=== PATIENT | male | born 1945 | race Caucasian/White ===

== ENCOUNTER 2017-08-23 12:11 | Emergency (ER) | payer MEDICARE ==
[~2017-08-23] VITALS: Ht 180.3 cm; Wt 100.1 kg
[~2017-08-23 12:11] MED LIST: CEFU1TAB43 PO; ENAL20TA81 PO; GLIP5 PO; LOVA1TAB47 PO
[2017-08-23 12:23] VITALS: BP 163/70; PULSE 73; RESP 16; TEMP 98.7; O2SAT 98
[2017-08-23] MEDS ORDERED: ALLO300T2 PO (12:35)
[2017-08-23] MEDS ORDERED: LISI20TA PO (12:35)
[2017-08-23] MEDS ORDERED: POTASSIUM PO (12:35)
[2017-08-23] MEDS ORDERED: GLIP5TAB8 PO (12:35)
[2017-08-23] MEDS ORDERED: LOVA20TA PO (12:35)
[2017-08-23] MEDS ORDERED: METO50TA PO (12:35)
[2017-08-23] MEDS ORDERED: ASPI-183 PO (12:35)
[2017-08-23] MEDS ORDERED: TETANUS/DIPHTHERIA TOXOID ADULT 0.5 ML VIAL IM ONE (13:30)
--- NOTE | 2017-08-23 13:56 | RADRPT ---
EXAM DATE/TIME: 08/23/2017 13:43 [facility] COMPARISON: No previous studies available for comparison. INDICATIONS : Right hand pain post fall yesterday. Pain & swelling in the 1st MCP joint. MEDICAL HISTORY : Hypertension. Hypercholesterolemia. Diabetic. SURGICAL HISTORY : Cyst removed from chest. ENCOUNTER: Initial ACUITY: 2 days PAIN SCORE: 8/10 LOCATION: Right hand FINDINGS: Three view examination of the right hand demonstrates dislocation of the first metacarpal phalangeal joint. Focal impaction injury along the articulating surface of the metacarpal is suspected. Bony str uctures are otherwise intact. CONCLUSION: Dislocated first metacarpal phalangeal joint of the right hand. Phill Sandoval MD on August 23, 2017 at 13:53 Board Certified Radiologist. This report was verified electronically.
--- NOTE | 2017-08-23 13:58 | PD ---
HPI Chief Complaint: Injury Time Seen by Provider: 13:07 Travel History International Travel<30 days: No Contact w/Intl Traveler<30days: No Traveled to known affect area: No History of Present Illness HPI This is a 71-year-old male here with right thumb pain after he fell onto an outstretched hand yesterday. No head injury or loss of consciousness. Patient not anticoagulated. He has pain in the right hand and decreased ability to move the thumb. The 71 is neurovascularly intact.. He reports normal sensation in the hand and fingers. He has multiple abrasions to his palms and a few to his right cheek. Symptom severity is moderate. Aggravated by movement of the thumb and relieved with rest. PFSH Past Medical History Asthma: No Heart Rhythm Problems: No Cancer: No Cardiovascular Problems: Yes (htn on meds) High Cholesterol: Yes Chest Pain: No Congestive Heart Failure: No COPD: No Diabetes: Yes (type 2) Patient Takes Glucophage: No Diminished Hearing: No Endocrine: Yes Gastrointestinal Disorders: No Genitourinary: Yes Hypertension: Yes Immune Disorder: No Implanted Vascular Access Dvce: No Musculoskeletal: Yes Neurologic: No Psychiatric: No Respiratory: Yes (sarcodosis) Immunizations Current: Yes Sleep Apnea: No Thyroid Disease: No Past Surgical History Other Surgery: Yes Family History Family Myocardial Infarction: Yes (mother at 66) Social History Alcohol Use: Yes (4-6 beers per day) Tobacco Use: No Substance Use: No Allergies-Medications (Allergen,Severity, Reaction): Coded Allergies: No Known Allergies (Verified Adverse Reaction, Unknown, 08/23/17) Reported Meds & Prescriptions Reported Meds & Active Scripts Active Reported [Potassium] 595 Mg PO DAILY Aspirin 325 Mg Tab 325 Mg PO DAILY Metoprolol Tartrate 50 Mg Tab 50 Mg PO BID Lisinopril-Hctz 20-12.5 Mg Tab 1 Tab PO DAILY Glipizide 5 Mg Tab 5 Mg PO BIDAC Take 30 minutes before a meal Lovastatin 20 Mg Tab 20 Mg PO DAILY Allopurinol 300 Mg Tab 300 Mg PO DAILY Review of Systems Except as stated in HPI: all other systems reviewed are Neg Eyes: No: Visual changes HENT: No: Headaches Cardiovascular: No: Chest Pain or Discomfort Respiratory: No: Shortness of Breath Gastrointestinal: No: Abdominal Pain Physical Exam Narrative GENERAL: Alert well-appearing male. SKIN: Warm and dry. Superficial abrasions to the right cheek, bilateral palms. HEAD: Normocephalic. EYES: Pupils are equal, round, reactive to light. EOMs intact. No injection or drainage. NECK: Supple, trachea midline. No JVD or lymphadenopathy. No cervical midline tenderness. CARDIOVASCULAR: Regular rate and rhythm without murmurs, gallops, or rubs. No chest wall tenderness. RESPIRATORY: Breath sounds equal bilaterally. No accessory muscle use. GASTROINTESTINAL: Abdomen soft, non-tender, nondistended. MUSCULOSKELETAL: No cyanosis. Right hand: Notable swelling to the right hand primarily at the base of the thumb region. Very limited range of motion of the thumb. Reported normal sensation in the thumb. Brisk cap refill. BACK: Nontender without obvious deformity. No CVA tenderness. Data Data Last Documented VS Vital Signs Date Time Temp Pulse Resp B/P (MAP) Pulse Ox O2 Delivery O2 Flow Rate FiO2 08/23/17 12:23 98.7 73 16 163/70 (101) 98 Orders Orders Hand, Complete ([id number]) (08/23/17 ) Tetanus/Diphtheria Tox Adult (Tetanus/Di (08/23/17 13:30) Hand, Limited (2vws) (08/23/17 ) [facility] Medical Decision Making Medical Screen Exam Complete: Yes Emergency Medical Condition: Yes Differential Diagnosis Contusion, fracture, dislocation, abrasions Narrative Course 71-year-old male with right thumb dislocation. Digital block performed and some reduced with mild traction. Patient tolerated procedure well. Extremity is neurovascularly intact. Postreduction x-ray revealed normal alignment. Thumb spica splint applied. Patient is to follow-up with hand surgeon. Diagnosis Primary Impression: Finger dislocation Qualified Codes: S63.259A - Unspecified dislocation of unspecified finger, initial encounter Referrals: Hand Surgeon Primary Care Physician Additional Instructions: Cleansed the area daily with soap and water. Apply clean dry dressing. Then reapply the splint. Take [id number] Tylenol or Motrin as needed for pain. Ice and elevate the extremity. Follow-up with her primary doctor or hand surgeon. Disposition: 01 DISCHARGE HOME Condition: Stable TristaBina JOHNSON Aug 23, 2017 13:58
--- NOTE | 2017-08-23 14:28 | RADRPT ---
EXAM DATE/TIME: 08/23/2017 14:17 [facility] COMPARISON: HAND RIGHT COMPLETE ([id number]), August 23, 2017, 13:43. INDICATIONS : Post reduction. MEDICAL HISTORY : Hypertension. Hypercholesterolemia. Diabetic. SURGICAL HISTORY : Cyst removed from chest. ENCOUNTER: Subsequent ACUITY: Acute PAIN SCORE: 0/10 LOCATION: Right hand. FINDINGS: Two view examination of the right hand demonstrates satisfactory reduction of the dislocated first me tatarsophalangeal joint. Joint is now anatomically aligned. There is no apparent fracture. CONCLUSION: Anatomic realignment of the first metatarsophalangeal joint of the right hand following reduction. Phill Sandoval MD on August 23, 2017 at 14:25 Board Certified Radiologist. This report was verified electronically.
[2017-08-24] MEDS ORDERED: POTA595T PO (10:39)
== END 2017-08-23 15:32 | disposition home or self-care (01) ==
LOC: PHEFT 12:11
DX: S63.114A Dislocation of metacarpophalangeal joint of right thumb, initial encounter (principal); I10 Essential (primary) hypertension; E78.00 Pure hypercholesterolemia, unspecified; E11.9 Type 2 diabetes mellitus without complications; D86.9 Sarcoidosis, unspecified; W18.30XA Fall on same level, unspecified, initial encounter; Z79.82 Long term (current) use of aspirin; Z79.899 Other long term (current) drug therapy; Z23 Encounter for immunization
CPT/HCPCS: 73120; 73130; 90471; 90714; 99283; L3808